=== PATIENT | female | born 1960 | race Caucasian/White ===

== ENCOUNTER 2020-06-11 17:21 | Emergency (ER) | payer MEDICARE, OTHER ==
[~2020-06-11 17:21] MED LIST: MIRALAX17 GM PO
[2020-06-11 18:43] LABS: RED BLOOD COUNT 3.93 M/UL (4.00-5.10); WHITE BLOOD COUNT 11.5 K/UL (4.5-11.0)
[2020-06-11 18:56] LABS: BUN/CREATININE RATIO 23 (0-10)
[2020-06-11] MEDS ORDERED: CYCLOBENZAPRINE10 MG PO (21:03)
[2020-06-11] MEDS ORDERED: HYDROCODON-ACE1 EAC4 PO (21:09)
== END 2020-06-11 21:47 | disposition home or self-care (01) ==
LOC: ER1 17:21
PROVIDERS: Physician Assistant
DX: M51.37 Other intervertebral disc degeneration, lumbosacral region (principal); M51.27 Other intervertebral disc displacement, lumbosacral region; R10.30 Lower abdominal pain, unspecified; F17.210 Nicotine dependence, cigarettes, uncomplicated
CPT/HCPCS: 72131; 80053; 81001; 83690; 85025; 87086; 96374; 99284; J1885; J7030

== ENCOUNTER 2021-02-08 12:56 | Emergency (ER) | payer MEDICARE ==
[~2021-02-08] VITALS: Ht 165.1 cm; Wt 77.1 kg
[~2021-02-08 12:56] MED LIST changes: +CYCLOBENZAPRINE10 MG PO; +HYDROCODON-ACE1 EAC4 PO
== END 2021-02-08 17:25 | disposition home or self-care (01) ==
LOC: ER1 12:56
DX: U07.1 COVID-19 (principal); Z23 Encounter for immunization; I10 Essential (primary) hypertension; M06.9 Rheumatoid arthritis, unspecified
CPT/HCPCS: 71045; 99284; M0243; U0002